=== PATIENT | female | born 1965 | race Caucasian/White ===

== ENCOUNTER 2023-06-27 08:05 | Outpatient (CLI) | payer OTHER ==
[2023-06-27] MEDS ORDERED: DIATR MEGLU/DIATRIZ SOD 30 ML SOLUTION PO ONE (08:28)
== END 2023-06-27 19:59 | disposition home or self-care (01) ==
LOC: SCT 08:05
PROVIDERS: ATTEND Urology Pediatric Urology
DX: R16.0 Hepatomegaly, not elsewhere classified (principal); M47.816 Spondylosis without myelopathy or radiculopathy, lumbar region; R31.21 Asymptomatic microscopic hematuria; M25.78 Osteophyte, vertebrae
CPT/HCPCS: 74178; Q9967; Q9964